=== PATIENT | male | born 1940 | race Caucasian/White ===

== ENCOUNTER 2017-06-09 08:09 | Emergency (ER) | payer OTHER, MEDICAID ==
[~2017-06-09] VITALS: Ht 175.3 cm; Wt 63.0 kg
[2017-06-09 08:50] VITALS: BP 132/72
[2017-06-09] MEDS ORDERED: ONDANSETRON HCL 4 MG/2 ML VIAL IM ONE (09:15)
[2017-06-09] MEDS ORDERED: HYDROmorphone HCL 2 MG/ML VL IM ONE (09:15)
== END 2017-06-09 10:00 | disposition home or self-care (01) ==
LOC: ER 08:09
DX: M54.5 Low back pain (principal); J44.9 Chronic obstructive pulmonary disease, unspecified; F17.210 Nicotine dependence, cigarettes, uncomplicated; Z85.118 Personal history of other malignant neoplasm of bronchus and lung
CPT/HCPCS: 96372; 99284; J1170; J2405

== ENCOUNTER 2017-06-23 13:16 | Emergency (ER) | payer OTHER, MEDICAID ==
[~2017-06-23] VITALS: Ht 175.3 cm; Wt 61.2 kg
[2017-06-23 15:55] VITALS: BP 138/92
[2017-06-23] MEDS ORDERED: HYDROmorphone HCL 2 MG/ML VL IM ONE (16:15)
[2017-06-23] MEDS ORDERED: ONDANSETRON HCL 4 MG/2 ML VIAL IM ONE (16:15)
== END 2017-06-23 17:01 | disposition home or self-care (01) ==
LOC: ER 13:26
DX: M54.9 Dorsalgia, unspecified (principal); M79.1 Myalgia; J44.9 Chronic obstructive pulmonary disease, unspecified; M19.90 Unspecified osteoarthritis, unspecified site; Z87.891 Personal history of nicotine dependence
CPT/HCPCS: 93005; 96372; 99284; J1170; J2405

== ENCOUNTER 2017-07-09 15:31 | Inpatient (IN) | payer OTHER, MEDICAID ==
[~2017-07-09] VITALS: Ht 162.6 cm; Wt 64.0 kg
[2017-07-09] MEDS ORDERED: ONDANSETRON HCL 4 MG/2 ML VIAL IV ONE (19:00)
[2017-07-09] MEDS ORDERED: MORPHINE SULFATE 10 MG/ML INJ 1ML SDV IV ONE (19:00)
[2017-07-09 19:22] LABS: Basophils # (auto) 0 uL; Basophils % (auto) 0.4 % (0.0-2.0); Eosinophils # (auto) 0 uL; Hematocrit 48.5 % (41.0-53.0); Hemoglobin 16.2 g/dL (13.5-17.5); Lymphocytes # (auto) 1.4 uL; Lymphocytes % (auto) 11.4 % (10.0-50.0); Mean Corpuscular Hemoglobin 31.9 pg (28.0-32.0); Mean Corpuscular Hgb Conc. 33.4 g/dL (32.0-36.0); Mean Corpuscular Volume 95.6 fL (80.0-100.0); Monocytes # (auto) 0.6 uL; Neutrophils % (auto) 83.2 % (37.0-80.0); Nucleated Red Blood Cells % 0.1 %; Platelet Count (auto) 265 10^3/uL (140-450); Red Blood Cells 5.07 10^6/uL (4.5-5.90); Red Cell Distribution Width 15.4 % (11.8-14.3)
[2017-07-09] MEDS ORDERED: cefTRIAXone 1GM/10ml IVPUSH 10 ML IV ONE (19:45)
[2017-07-09 19:49] LABS: Alanine Aminotransferase 25 U/L (16-61); Alkaline Phosphatase 158 U/L (45-117); Anion Gap 9 (5-15); Aspartate Aminotransferase 24 U/L (15-37); BUN/Creatinine Ratio 11.8; Bilirubin, Total 0.4 mg/dL (0.2-1.0); Blood Urea Nitrogen 10 mg/dL (7-18); Carbon Dioxide 23 mmol/L (21-32); Chloride 106 mmol/L (98-107); GFR African American 113 mL/min; GFR Non-African American 93 mL/min; Glucose 109 mg/dL (74-106); Potassium 3.6 mmol/L (3.5-5.1); Sodium 138 mmol/L (136-145); Total Protein 7.4 g/dL (6.4-8.2)
[2017-07-10] MEDS ORDERED: ALBUTEROL SULF 2.5 MG/0.5ML(0.5%) NEB SOLN NEB ONE (00:30)
[2017-07-10] MEDS ORDERED: methylPREDNISolone SOD SUCC 125 MG/2 ML VL IV ONE (00:30)
[2017-07-10] MEDS ORDERED: ONDANSETRON HCL 4 MG/2 ML VIAL IV ONE (00:30)
[2017-07-10] MEDS ORDERED: MORPHINE SULFATE 10 MG/ML INJ 1ML SDV IV ONE (00:30)
[2017-07-10] MEDS ORDERED: IPRATROPIUM BROM 0.5 MG/2.5ML INH SOL NEB ONE (00:30)
[2017-07-10] MEDS ORDERED: FUROSEMIDE 20 MG/2 ML VIAL IV ONE (04:00)
[2017-07-10] MEDS ORDERED: SODIUM CHLORIDE 0.9% 1,000 ML IV SCH (05:57)
[2017-07-10] MEDS ORDERED: ACETAMINOPHEN 325 MG TAB PO PRN (06:00)
[2017-07-10] MEDS ORDERED: IPRATROPIUM BROM 0.5 MG/2.5ML INH SOL NEB PRN (06:00)
[2017-07-10] MEDS ORDERED: cloNIDine HCL 0.1 MG TAB PO PRN (06:00)
[2017-07-10] MEDS ORDERED: NITROGLYCERIN 0.4 MG SL TAB SL PRN (06:00)
[2017-07-10] MEDS ORDERED: ENOXAPARIN SOD 100 MG/1 ML SYRINGE SC ONE (06:00)
[2017-07-10] MEDS ORDERED: MORPHINE SULFATE 10 MG/ML INJ 1ML SDV IV PRN ×2 (06:00→11:45)
[2017-07-10] MEDS ORDERED: ALBUTEROL SULF 2.5 MG/0.5ML(0.5%) NEB SOLN NEB PRN (06:00)
[2017-07-10] MEDS ORDERED: ONDANSETRON HCL 4 MG/2 ML VIAL IV PRN (06:00)
[2017-07-10] MEDS ORDERED: IOHEXOL 350 MG/ML 100ML IJ ONE (07:16)
[2017-07-10] MEDS ORDERED: TERA2CAP45 PO (08:43)
[2017-07-10] MEDS ORDERED: ALB5IS NEB (08:43)
[2017-07-10] MEDS ORDERED: CALC500C3 PO (08:43)
[2017-07-10] MEDS ORDERED: TRAM50TA2 PO (08:43)
[2017-07-10] MEDS ORDERED: OMEP20CA74 PO (08:43)
[2017-07-10] MEDS ORDERED: BUDE0.253 IN (08:43)
[2017-07-10] MEDS ORDERED: METH500T6 PO (08:43)
[2017-07-10] MEDS ORDERED: TIOTCAP IN (08:43)
[2017-07-10] MEDS ORDERED: MIRT30TA PO (08:43)
[2017-07-10] MEDS ORDERED: FLUT1SPR5 (08:43)
[2017-07-10 09:00] VITALS: BP 146/99
[2017-07-10] MEDS ORDERED: cefTRIAXone 1GM/10ml IVPUSH 10 ML IV SCH (09:00)
[2017-07-10] MEDS: ENOXAPARIN SOD 40 MG/0.4 ML SYRINGE SC SCH (09:28)
[2017-07-10] MEDS: FAMOTIDINE 20 MG TAB PO SCH ×2 (09:28→22:00)
[2017-07-10] MEDS: amLODIPine BESYLATE 5 MG TAB PO SCH (09:31)
[2017-07-10] MEDS: HYDROcodone-ACET 5/325MG TAB PO PRN ×2 (09:32→18:21)
[2017-07-10] MEDS ORDERED: methylPREDNISolone SOD SUCC 125 MG/2 ML VL IV SCH (10:00)
[2017-07-10] MEDS ORDERED: oxyCODONE ER 10 MG TAB PO ONE (11:45)
[2017-07-10 13:00] VITALS: BP 154/97
[2017-07-10 17:00] VITALS: BP 149/80
[2017-07-10] MEDS: BUDESONIDE (INHALATION) 0.5 MG/2 ML NEB NEB SCH (18:43)
[2017-07-10] MEDS: ALBUTEROL SULF 2.5 MG/0.5ML(0.5%) NEB SOLN NEB SCH (18:43)
[2017-07-10] MEDS: IPRATROPIUM BROM 0.5 MG/2.5ML INH SOL NEB SCH (18:43)
[2017-07-10 22:00] VITALS: BP 125/76
[2017-07-10] MEDS: oxyCODONE ER 10 MG TAB PO SCH (22:00)
[2017-07-10] MEDS: methylPREDNISolone SOD SUCC 40 MG/ML VL IV SCH (22:00)
[2017-07-10 23:19] VITALS: BP 149/80
[2017-07-11 05:59] VITALS: BP 132/75
[2017-07-11] MEDS: IPRATROPIUM BROM 0.5 MG/2.5ML INH SOL NEB SCH ×4 (06:42→19:22)
[2017-07-11] MEDS: ALBUTEROL SULF 2.5 MG/0.5ML(0.5%) NEB SOLN NEB SCH ×4 (06:42→19:22)
[2017-07-11 07:32] LABS: Basophils # (auto) 0 uL; Basophils % (auto) 0.2 % (0.0-2.0); Eosinophils # (auto) 0 uL; Hematocrit 40.3 % (41.0-53.0); Hemoglobin 13.6 g/dL (13.5-17.5); Lymphocytes # (auto) 1.4 uL; Lymphocytes % (auto) 10.1 % (10.0-50.0); Mean Corpuscular Hgb Conc. 33.7 g/dL (32.0-36.0); Monocytes % (auto) 7.6 % (0.0-12.0); Neutrophils # (auto) 11.3 uL; Neutrophils % (auto) 82.1 % (37.0-80.0); Platelet Count (auto) 239 10^3/uL (140-450); Red Blood Cells 4.24 10^6/uL (4.5-5.90); Red Cell Distribution Width 14.7 % (11.8-14.3); White Blood Cell 13.8 10^3/uL (4.4-10.8)
[2017-07-11 07:55] LABS: Albumin 2.6 g/dL (3.4-5.0); BUN/Creatinine Ratio 24.1; Calcium 8.8 mg/dL (8.5-10.1); Potassium 3.8 mmol/L (3.5-5.1)
[2017-07-11 08:05] LABS: Bilirubin, Total 0.3 mg/dL (0.2-1.0); Total Protein 6.4 g/dL (6.4-8.2)
[2017-07-11 09:00] VITALS: BP 133/85
[2017-07-11] MEDS: FAMOTIDINE 20 MG TAB PO SCH ×2 (09:38→22:00)
[2017-07-11] MEDS: oxyCODONE ER 10 MG TAB PO SCH ×2 (09:38→22:00)
[2017-07-11] MEDS: methylPREDNISolone SOD SUCC 40 MG/ML VL IV SCH ×2 (09:39→22:00)
[2017-07-11] MEDS: ENOXAPARIN SOD 40 MG/0.4 ML SYRINGE SC SCH (09:39)
[2017-07-11] MEDS: amLODIPine BESYLATE 5 MG TAB PO SCH (09:53)
[2017-07-11] MEDS: BUDESONIDE (INHALATION) 0.5 MG/2 ML NEB NEB SCH ×2 (10:04→19:23)
[2017-07-11] MEDS: HYDROcodone-ACET 5/325MG TAB PO PRN ×2 (12:09→18:43)
[2017-07-11 13:00] VITALS: BP 137/62
[2017-07-11 17:40] VITALS: BP 125/75
[2017-07-11 21:48] VITALS: BP 136/92
[2017-07-12] MEDS: HYDROcodone-ACET 5/325MG TAB PO PRN ×2 (01:54→16:39)
[2017-07-12 03:14] LABS: Urine Bacteria NONE SEEN /hpf (None Seen); Urine Blood Negative /uL (Negative); Urine Mucus FEW (None Seen); Urine Specific Gravity 1.021 (1.001-1.035); Urine WBC <1 /hpf (0 - 3)
[2017-07-12 03:36] LABS: Alcohol, Urine < 3.0 mg/dL (0-5); Amphetamine Screen, Urine NEGATIVE (NEGATIVE); Barbiturate Scree,Urine NEGATIVE (NEGATIVE); Benzodiazephine Screen, Urine NEGATIVE (NEGATIVE); Cannabinoid Screen, Urine NEGATIVE (NEGATIVE); Cocaine Screen, Urine NEGATIVE (NEGATIVE); Opiate Scree,Urine POSITIVE (NEGATIVE); Phencyclidine Screen, Urine NEGATIVE (NEGATIVE)
[2017-07-12] MEDS: ALBUTEROL SULF 2.5 MG/0.5ML(0.5%) NEB SOLN NEB SCH ×4 (05:49→18:31)
[2017-07-12] MEDS: IPRATROPIUM BROM 0.5 MG/2.5ML INH SOL NEB SCH ×4 (05:49→18:31)
[2017-07-12 05:56] VITALS: BP 138/95
[2017-07-12 06:43] LABS: Basophils # (auto) 0 uL; Basophils % (auto) 0.2 % (0.0-2.0); Eosinophils # (auto) 0 uL; Hematocrit 42.2 % (41.0-53.0); Hemoglobin 14.3 g/dL (13.5-17.5); Lymphocytes # (auto) 1.7 uL; Lymphocytes % (auto) 14.8 % (10.0-50.0); Mean Corpuscular Hgb Conc. 33.9 g/dL (32.0-36.0); Mean Corpuscular Volume 94.4 fL (80.0-100.0); Monocytes % (auto) 8.9 % (0.0-12.0); Neutrophils # (auto) 8.7 uL; Neutrophils % (auto) 76.1 % (37.0-80.0); Nucleated Red Blood Cells % 0.1 %; Platelet Count (auto) 243 10^3/uL (140-450); Red Blood Cells 4.47 10^6/uL (4.5-5.90); Red Cell Distribution Width 14.7 % (11.8-14.3); White Blood Cell 11.4 10^3/uL (4.4-10.8)
[2017-07-12 09:00] VITALS: BP 157/97
[2017-07-12] MEDS: BUDESONIDE (INHALATION) 0.5 MG/2 ML NEB NEB SCH ×2 (10:00→19:16)
[2017-07-12] MEDS: methylPREDNISolone SOD SUCC 40 MG/ML VL IV SCH ×2 (10:28→22:00)
[2017-07-12] MEDS: ENOXAPARIN SOD 40 MG/0.4 ML SYRINGE SC SCH (10:29)
[2017-07-12] MEDS: oxyCODONE ER 10 MG TAB PO SCH ×2 (10:29→22:09)
[2017-07-12] MEDS: FAMOTIDINE 20 MG TAB PO SCH ×2 (10:29→22:00)
[2017-07-12] MEDS: amLODIPine BESYLATE 5 MG TAB PO SCH (10:29)
[2017-07-12 13:00] VITALS: BP 150/97
[2017-07-12] MEDS: DOCUSATE SOD 100 MG CAP PO PRN (16:38)
[2017-07-12 17:00] VITALS: BP 138/89
[2017-07-12 21:30] VITALS: BP_SYST 133; BP_SYST 136; BP_DIAS 60; BP_DIAS 74
[2017-07-12] MEDS: TEMAZEPAM 15 MG CAP PO PRN (23:15)
[2017-07-13 05:00] VITALS: BP 141/86
[2017-07-13] MEDS: IPRATROPIUM BROM 0.5 MG/2.5ML INH SOL NEB SCH ×4 (05:53→18:48)
[2017-07-13] MEDS: ALBUTEROL SULF 2.5 MG/0.5ML(0.5%) NEB SOLN NEB SCH ×4 (05:53→18:48)
[2017-07-13] MEDS: HYDROcodone-ACET 5/325MG TAB PO PRN ×3 (05:55→18:41)
[2017-07-13 07:54] LABS: Basophils # (auto) 0 uL; Basophils % (auto) 0.1 % (0.0-2.0); Eosinophils # (auto) 0 uL; Eosinophils % (auto) 0.1 % (0.0-7.0); Hematocrit 45.4 % (41.0-53.0); Hemoglobin 15.2 g/dL (13.5-17.5); Lymphocytes # (auto) 1.8 uL; Lymphocytes % (auto) 20.2 % (10.0-50.0); Mean Corpuscular Hemoglobin 31.8 pg (28.0-32.0); Mean Corpuscular Hgb Conc. 33.6 g/dL (32.0-36.0); Mean Corpuscular Volume 94.9 fL (80.0-100.0); Monocytes # (auto) 0.9 uL; Monocytes % (auto) 10.1 % (0.0-12.0); Neutrophils # (auto) 6.1 uL; Neutrophils % (auto) 69.5 % (37.0-80.0); Nucleated Red Blood Cells % 0.2 %; Platelet Count (auto) 261 10^3/uL (140-450); Red Blood Cells 4.78 10^6/uL (4.5-5.90); Red Cell Distribution Width 14.5 % (11.8-14.3); White Blood Cell 8.8 10^3/uL (4.4-10.8)
[2017-07-13 08:19] LABS: Calcium 8.6 mg/dL (8.5-10.1); Potassium 3.5 mmol/L (3.5-5.1)
[2017-07-13 09:00] VITALS: BP 152/88
[2017-07-13] MEDS: methylPREDNISolone SOD SUCC 40 MG/ML VL IV SCH (11:19)
[2017-07-13] MEDS: ENOXAPARIN SOD 40 MG/0.4 ML SYRINGE SC SCH (11:19)
[2017-07-13] MEDS: oxyCODONE ER 10 MG TAB PO SCH ×2 (11:20→21:29)
[2017-07-13] MEDS: amLODIPine BESYLATE 5 MG TAB PO SCH (11:20)
[2017-07-13] MEDS: FAMOTIDINE 20 MG TAB PO SCH ×2 (11:20→21:29)
[2017-07-13 13:00] VITALS: BP_SYST 107; BP_SYST 139; BP_DIAS 54; BP_DIAS 80
[2017-07-13 17:00] VITALS: BP 142/90
[2017-07-13] MEDS: BUDESONIDE (INHALATION) 0.5 MG/2 ML NEB NEB SCH (18:48)
[2017-07-13] MEDS: TEMAZEPAM 15 MG CAP PO PRN (21:29)
[2017-07-13 22:00] VITALS: BP 143/90
[2017-07-14 00:51] VITALS: BP 142/90
[2017-07-14] MEDS: ALBUTEROL SULF 2.5 MG/0.5ML(0.5%) NEB SOLN NEB SCH ×4 (05:45→18:00)
[2017-07-14] MEDS: IPRATROPIUM BROM 0.5 MG/2.5ML INH SOL NEB SCH ×4 (05:45→18:00)
[2017-07-14 06:00] VITALS: BP 149/80
[2017-07-14 09:00] VITALS: BP 156/102
[2017-07-14] MEDS: FAMOTIDINE 20 MG TAB PO SCH (09:54)
[2017-07-14] MEDS: ENOXAPARIN SOD 40 MG/0.4 ML SYRINGE SC SCH (09:55)
[2017-07-14] MEDS: oxyCODONE ER 10 MG TAB PO SCH (09:55)
[2017-07-14] MEDS ORDERED: predniSONE 20 MG TAB PO SCH (10:00)
[2017-07-14] MEDS: BUDESONIDE (INHALATION) 0.5 MG/2 ML NEB NEB SCH ×2 (10:15→18:49)
[2017-07-14] MEDS: DOCUSATE SOD 100 MG CAP PO PRN (10:24)
[2017-07-14] MEDS: amLODIPine BESYLATE 5 MG TAB PO SCH (11:46)
[2017-07-14 13:00] VITALS: BP 149/84
[2017-07-14] MEDS ORDERED: LACTULOSE 20Gm/30ML SOLN PO ONE (13:00)
[2017-07-14] MEDS: HYDROcodone-ACET 5/325MG TAB PO PRN (13:51)
[2017-07-14 17:00] VITALS: BP 134/89
== END 2017-07-14 19:35 | DRG 183 ==
LOC: ER 15:31 → EDUNIT# 15:31 → TELE 15:32 → TELE-WESTW 07-10 07:50 → WEST WING 07-11 13:49
PROVIDERS: ADMIT Nurse Practitioner; ATTEND Internal Medicine
DX: S22.41XA Multiple fractures of ribs, right side, initial encounter for closed fracture (principal); J96.00 Acute respiratory failure, unspecified whether with hypoxia or hypercapnia; C34.90 Malignant neoplasm of unspecified part of unspecified bronchus or lung; I11.0 Hypertensive heart disease with heart failure; I50.9 Heart failure, unspecified; S22.048A Other fracture of fourth thoracic vertebra, initial encounter for closed fracture; J44.1 Chronic obstructive pulmonary disease with (acute) exacerbation; S22.068A Other fracture of T7-T8 thoracic vertebra, initial encounter for closed fracture; K59.00 Constipation, unspecified; W18.39XA Other fall on same level, initial encounter; M17.11 Unilateral primary osteoarthritis, right knee; R79.1 Abnormal coagulation profile; R91.1 Solitary pulmonary nodule; Z90.49 Acquired absence of other specified parts of digestive tract; Z85.118 Personal history of other malignant neoplasm of bronchus and lung; Z87.891 Personal history of nicotine dependence; Y93.89 Activity, other specified; Y92.89 Other specified places as the place of occurrence of the external cause; Y99.8 Other external cause status; Z71.3 Dietary counseling and surveillance; S22.029D Unspecified fracture of second thoracic vertebra, subsequent encounter for fracture with routine healing; S22.069D Unspecified fracture of T7-T8 vertebra, subsequent encounter for fracture with routine healing
CPT/HCPCS: 36415; 36600; 71045; 71275; 73030; 73502; 73562; 80048; 80053; 80307; 81001; 82805; 83735; 83880; 84484; 85025; 85379; 87040; 87081; 87086; 93005; 94640; 94761; 96374; 96375; 96376; 97116; 97163; 97530; J2405